=== PATIENT | male | born 1960 | race Caucasian/White ===

== ENCOUNTER → 2016-10-24 | Outpatient (CLI) | payer BC ==
[2016-10-24 11:01] LABS: ALT/SGPT 51 U/L (12-78); BLOOD UREA NITROGEN 22 mg/dl (7-18); BUN/CREATININE RATIO 24.5 (10-20); CALCIUM 8.2 mg/dl (8.5-10.1); CARBON DIOXIDE 30 mmol/L (21-32); CHLORIDE 102 mmol/L (98-107); GLUCOSE 107 mg/dl (70-99); SODIUM 138 mmol/L (136-145)
[2016-10-24 11:04] LABS: ALB/GLOB RATIO 0.9 (0.9-2); ALKALINE PHOSPHATASE 55 U/L (45-117); AST/SGOT 19 U/L (15-37); CHOLESTEROL 197 mg/dl (0-200); CHOLESTEROL/HDL RATIO 4.2; HDL CHOLESTEROL 47 mg/dl; LDL CHOLESTEROL CALCULATED 128 mg/dl; TRIGLYCERIDES 110 mg/dl (0-150); VERY LOW DENSITY LIPOPROT CALC 22 mg/dl
[2016-10-24 11:41] LABS: ESTIMATED AVERAGE GLUCOSE 128 mg/dl; HA1C FLAG Normal (Normal)
== END | disposition home or self-care (01) ==
LOC: C.LABBC 07:22
PROVIDERS: ATTEND Internal Medicine
DX: R73.01 Impaired fasting glucose (principal)

== ENCOUNTER → 2017-04-09 | Outpatient (CLI) | payer BC ==
[2017-04-09 13:44] LABS: ESTIMATED AVERAGE GLUCOSE 140 mg/dl; HA1C FLAG Normal (Normal)
[2017-04-09 13:49] LABS: ALT/SGPT 55 U/L (12-78); BLOOD UREA NITROGEN 16 mg/dl (7-18); BUN/CREATININE RATIO 17.9 (10-20); CALCIUM 9.3 mg/dl (8.5-10.1); CARBON DIOXIDE 29 mmol/L (21-32); CHLORIDE 104 mmol/L (98-107); CHOLESTEROL 239 mg/dl (0-200); CREATININE 0.91 mg/dl (0.60-1.40); GLUCOSE 101 mg/dl (70-99); POTASSIUM 4.3 mmol/L (3.5-5.1); SODIUM 139 mmol/L (136-145); TRIGLYCERIDES 146 mg/dl (0-150); VERY LOW DENSITY LIPOPROT CALC 29 mg/dl
[2017-04-09 13:52] LABS: ALKALINE PHOSPHATASE 60 U/L (45-117); AST/SGOT 28 U/L (15-37); CHOLESTEROL/HDL RATIO 4.6; HDL CHOLESTEROL 52 mg/dl; LDL CHOLESTEROL CALCULATED 158 mg/dl
== END | disposition home or self-care (01) ==
LOC: C.LABBC 10:35
PROVIDERS: ATTEND Internal Medicine
DX: G47.33 Obstructive sleep apnea (adult) (pediatric) (principal); Z11.59 Encounter for screening for other viral diseases

== ENCOUNTER → 2017-09-30 | Outpatient (CLI) | payer BC ==
--- NOTE | 2017-09-30 16:33 | DIAGNOSTIC IMAGING REPORT ---
CHEST 2 VIEWS ROUTINE HISTORY: 57 years-old Male R05 [id number] acute cough COMPARISON: Chest radiograph 02/04/2015 TECHNIQUE: PA and lateral views of the chest FINDINGS: Cardiac silhouette is upper limits of normal in size. There is no pneumothorax, pleural effusion, focal airspace consolidation or overt pulmonary edema. Bones of the chest appear grossly intact. Multilevel endplate spurring of the spine. IMPRESSION: No acute process. The above report was generated using voice recognition software. It may contain grammatical, syntax or spelling errors. Electronically signed by: Arya Cuenca M.D. 09/30/2017 4:32 PM Dictated Date/Time: 09/30/2017 4:31 PM
== END | disposition home or self-care (01) ==
LOC: C.RADBC 16:22
PROVIDERS: ATTEND Internal Medicine
DX: R05 Cough (principal)

== ENCOUNTER 2025-07-19 10:06 | Observation (INO) ==
--- NOTE | 2025-06-15 14:05 | PAT Medication Instructions ---
Medication Instructions Date of Service June 15, 2025 Home Medications Medication Instructions Recorded CPAP Machine #1 ea 03/17/19 lisinopril 40 mg tablet 40 mg PO DAILY #90 tabs 06/05/24 sertraline 50 mg tablet 50 mg PO DAILY #90 tabs 11/30/24 tirzepatide 10 mg/0.5 mL 10 mg (0.5 mL) subcut .weekly #6 mL 01/07/25 subcutaneous pen injector metformin 500 mg tablet,extended 500 mg PO BID #180 tabs 01/12/25 release 24 hr blood-glucose sensor (Dexcom G7 #9 ea 02/24/25 Sensor device) empagliflozin 25 mg tablet 25 mg PO DAILY #90 tabs 03/15/25 amlodipine 2.5 mg tablet See Rx Instructions .Route 04/21/25 .COMPLEX #90 tabs atorvastatin 20 mg tablet 20 mg PO DAILY #90 tabs 05/18/25 omega-3 acid ethyl esters 1 gram capsule 3 cap PO DAILY flaxseed oil 1,000 mg capsule 3,000 mg PO DAILY vitamin B complex 1 tab PO DAILY cholecalciferol (vitamin D3) 50 mcg (2,000 unit) capsule 2,000 unit PO DAILY lisinopril 40 mg tablet 40 mg PO DAILY sertraline 50 mg tablet 50 mg PO DAILY tirzepatide 10 mg/0.5 mL subcutaneous pen injector 10 mg (0.5 mL) subcut .weekly metformin 500 mg tablet,extended release 24 hr 500 mg PO BID empagliflozin 25 mg tablet 25 mg PO DAILY amlodipine 2.5 mg tablet See Rx Instructions .Route .COMPLEX atorvastatin 20 mg tablet 20 mg PO DAILY turmeric 400 mg capsule 1,000 mg PO DAILY STOP taking 2 weeks before surgery (or as soon as possible if surgery is within 2 weeks) omega-3 acid ethyl esters 1 gram capsule 3 cap PO DAILY flaxseed oil 1,000 mg capsule 3,000 mg PO DAILY turmeric 400 mg capsule 1,000 mg PO DAILY STOP 7 days prior to surgery tirzepatide 10 mg/0.5 mL subcutaneous pen injector 10 mg (0.5 mL) subcut .weekly STOP taking 3 days before surgery empagliflozin 25 mg tablet 25 mg PO DAILY DO NOT take the morning of surgery vitamin B complex 1 tab PO DAILY cholecalciferol (vitamin D3) 50 mcg (2,000 unit) capsule 2,000 unit PO DAILY lisinopril 40 mg tablet 40 mg PO DAILY metformin 500 mg tablet,extended release 24 hr 500 mg PO BID Take morning of surgery With a small sip of water, OTHERWISE NOTHING TO EAT OR DRINK AFTER MIDNIGHT: sertraline 50 mg tablet 50 mg PO DAILY amlodipine 2.5 mg tablet See Rx Instructions .Route .COMPLEX atorvastatin 20 mg tablet 20 mg PO DAILY Take evening before surgery metformin 500 mg tablet,extended release 24 hr 500 mg PO BID Other Notes If you have any questions please call us at [phone] or [phone] or [phone] or [phone]
--- NOTE | 2025-06-22 10:19 | Anesthesiology Consultation ---
Date of Service June 22, 2025 Assessment & Plan (1) Encounter for pre-operative examination: - Check BSG DOS - Infectious disease screening: Per assessment on 06/22/25- No known recent infectious disease contacts or current infectious disease symptoms. - Outpatient joint assessment: Pt currently scheduled for inpatient pathway. If surgeon requests review for outpatient joint pathway, patient is an acceptable candidate for outpatient joint program from anesthesia standpoint pending surgeon's office assessment that patient is motivated, has good support and completes [facility] preop requirements. - GLP-1 medication instructions: Patient informed by PAT to stop 7 days prior to surgery- voiced understanding. DOS 07/19. Advised last dose to be 07/12. Chart Review Chart Review: Acceptable Risk for Surgery and Patient seen in Pre Admission Testing Teaching & Discussion Pre-Anesthesia Teaching/Discussion Notes: Instructed NPO after midnight before surgery,except medications with 15 cc of water. Medication instructions p rovided according to the PAT guidelines. History Surgery Operation Date: 07/19/25 10:00 Proposed Procedures p Left Total Knee Arthroplasty - Matthieu Moffett DO Height/Weight Height: 5 ft 6 in Weight: 80.6 kg Allergies Allergy/AdvReac Type Severity Reaction Status Date / Time No Known Drug Allergies Allergy Verified 06/15/25 12:19 Medications Home Medications Medication Instructions Recorded Confirmed Last Taken CPAP Machine #1 ea 03/17/19 03/08/25 Unknown omega-3 acid ethyl esters 1 gram 3 cap PO DAILY 05/28/19 06/15/25 Unknown capsule flaxseed oil 1,000 mg capsule 3,000 mg PO DAILY 05/31/19 06/15/25 Unknown vitamin B complex 1 tab PO DAILY 02/23/21 06/15/25 Unknown cholecalciferol (vitamin D3) 50 2,000 unit PO DAILY 04/19/21 06/15/25 Unknown mcg (2,000 unit) capsule lisinopril 40 mg tablet 40 mg PO DAILY #90 tabs 06/05/24 06/15/25 Unknown sertraline 50 mg tablet 50 mg PO DAILY #90 tabs 11/30/24 06/15/25 Unknown tirzepatide 10 mg/0.5 mL 10 mg (0.5 mL) subcut .weekly #6 mL 01/07/25 06/15/25 Unknown subcutaneous pen injector metformin 500 mg tablet,extended 500 mg PO BID #180 tabs 01/12/25 06/15/25 Unknown release 24 hr blood-glucose sensor (Dexcom G7 #9 ea 02/24/25 03/08/25 Unknown Sensor device) empagliflozin 25 mg tablet 25 mg PO DAILY #90 tabs 03/15/25 06/15/25 Unknown amlodipine 2.5 mg tablet See Rx Instructions .Route 04/21/25 06/15/25 Unknown .COMPLEX #90 tabs atorvastatin 20 mg tablet 20 mg PO DAILY #90 tabs 05/18/25 06/15/25 Unknown turmeric 400 mg capsule 1,000 mg PO DAILY 06/15/25 06/15/25 Unknown Past Medical History Medical History Arthralgia Coronary artery calcification Diabetes Hepatic steatosis HLD (hyperlipidemia) HTN (hypertension) Knee pain RAJNI (obstructive sleep apnea) CPAP (compliant) Osteoarthritis Exercise / Class Metabolic Activity II 4-5 Yardwork/Stairs/Walk up hill (one FS: No CP, no SOB) Past Family History Family History Father Hypertension Hyperlipemia Aunt Breast cancer Grandfather (Paternal) Myocardial infarction Denies family history of Ovarian cancer Prostate cancer Lung cancer Colorectal cancer Past Surgical History Surgical History H/O vasectomy History of removal of pigmented skin lesion Hx of colonoscopy Past Anesthesia History No Hx of Anesthesia Complications and No Family Hx of Anesthesia Complications History of PONV No Hx of PONV and Hx of Motion Sickness (Situational) Social History Smoking Status: Never smoker Do You Dip or Chew Tobacco: No Hx Alcohol Use: Yes alcohol intake frequency: a few times a month Hx Substance Use: No substance use type: does not use Review of Systems Patient denies chest pain, shortness of breath, dyspnea on exertion, fever, chills, cough, wheezing, palpitations. Physical Exam Vital Signs BP 144/79 P 55 SP02 97%RA RESP 16 Physical Full cervical extension range of motion. Full TMJ range of motion. TMD > 3.5 finger breaths Mallampati Score I Dentition: intact Lungs: clear throughout to auscultation Cardiac: regular rate and rhythm, no murmurs noted Spine: normal Carotid arteries: negative bruit Extremities: no LE edema Lab Results Anesthesia Preop Results Results Anesthesia Widget: WBC 10.00 K/ul (4.8-10.8) 06/22/25 Hgb 14.9 g/dl (14.0-18.0) 06/22/25 Hct 44.1 % (42.0-52.0) 06/22/25 Plt 296 K/uL (130-400) 06/22/25 Na 139 mmol/L (136-145) 06/22/25 K 4.8 mmol/L (3.5-5.1) 06/22/25 Cl 104 mmol/L (98-107) 06/22/25 CO2 27 mmol/L (21-32) 06/22/25 BUN 24 mg/dl (6-23) H 06/22/25 Creat 0.75 mg/dl (0.6-1.4) 06/22/25 Glucose Level 104 mg/dl (70-99(Fasting)) H 06/22/25 PT 10.3 Seconds (9.0-12.0) 06/22/25 PTT 27 Seconds (21-31) 06/22/25 INR 1.0 (0.9-1.1) 06/22/25 HA1c 6.7 % (4.5-5.6) H 06/22/25 Blood Type A Positive 06/22/25 Antibody Screen NEGATIVE 06/22/25 Testing Electrocardiogram Date: 06/22/25 SB at 53bpm. "Otherwise normal ECG" Chest X-Ray Date: 06/22/25 Findings: + NAD
[~2025-07-19 10:06] MED LIST: BUPIVACAINE 0.5 % 5 MG/1 ML PF 10ML VIAL ONE; GLYCOPYRROLATE 0.2 MG/ML VIAL ONE; KETAMINE HCL 10MG/ML SYR ONE; LIDOCAINE 2% 2 ML VIAL/AMP(20MG/ML) INFIL ONE; MIDAZOLAM HCL 1 MG/ML 2ML VIAL ONE; ONDANSETRON INJ 2 MG/ML 2 ML VIAL ONE; PHENYLEPHRINE 100MCG/ML 5ML SYR ONE; PROPOFOL IV EMULSION 10 MG/ML 20 ML VIAL IV ONE; ROPIVACAINE 0.5% 5 MG/ML 30 ML VIAL ONE; ePHEDrine sulfate 50 MG/5 ML SYR ONE
--- NOTE | 2025-07-19 10:43 | History & Physical Bridge Note ---
Date of Service July 19, 2025 History & Physical Bridge Note I have examined the patient, reviewed the History & Physical and in the interval since the performance of the History & Physical I have noted the following changes of clinical significance: no changes noted
[2025-07-19] MEDS ORDERED: ATROPINE SULFATE 0.1 MG/ML 10ML SYR IV PRN (11:16)
[2025-07-19] MEDS ORDERED: ONDANSETRON INJ 2 MG/ML 2 ML VIAL IV PRN ×2 (11:16→15:13)
[2025-07-19] MEDS: FAMOTIDINE 20 MG TAB PO SCH (11:22)
[2025-07-19] MEDS: GABAPENTIN 600 MG DOSE PO SCH (11:22)
[2025-07-19] MEDS: ACETAMINOPHEN 500 MG TAB PO SCH ×2 (11:22→16:27)
[2025-07-19] MEDS: dexAMETHasone**PF** 10 MG/ML VIAL IV SCH (11:24)
[2025-07-19] MEDS: LR 500ML BOLUS, THEN 15ML/HR IV SCH (11:28)
[2025-07-19] MEDS: LR 60ML/HR IV SCH (11:28)
[2025-07-19] MEDS: TRANEXAMIC ACID 1,000 MG **IV Pre-op IV SCH (11:33)
[2025-07-19] MEDS: ORTHO JOINT ANESTHETIC ONE (12:00)
[2025-07-19] MEDS: ROPIV 0.5% 246mg, Ketorolac 30mg, EPINEPHrine 0.5mg in NSS INFIL SCH (12:00)
--- NOTE | 2025-07-19 12:47 | Operative Report ---
PG Post Operative Report Pre & Post Diagnosis Operation Date: 07/19/25 12:00 Pre-Op Diagnosis: Degenerative Joint Disease Left Knee Post-Op Diagnosis: Degenerative Joint Disease Left Knee I identified the patient and participated in the time-out.: Yes Procedure Operation Date: 07/19/25 12:00 Actual Procedures p Robotic Assisted Left Total Knee Arthroplasty, Uncemented(Left) - Matthieu Moffett DO Surgeon Matthieu Moffett DO [employer] Janeth Smith PA-C Estimated Blood Loss 30 Findings Consistent with Post-Op Diagnosis Specimens Left femoral and tibial bone Description of Procedure Implants used: I used a Danis Persona total knee arthroplasty system with a size 8 standard PS femur, E tibia, and a size 10 CPS polyethylene bearing. All components were press-fit into place. Chip arrived [facility] for the above procedure. He was seen in the preoperative holding area and the operative extremity was identified and signed. he was given a preoperative antibiotic, TXA, a spinal anesthetic and an adductor nerve block. He was taken back to the operating room and laid on the table in supine position. He was given basic sedation. The operative knee was then prepped and draped in sterile fashion. A timeout was done, and the patient and the operative extremity was properly identified. A midline incision was made directly over the patella. Dissection was taken down to the extensor mechanism. A medial parapatellar arthrotomy was used. The medial retinaculum was released and the fat pad was mostly excised. The knee was flexed and the ACL, PCL, and meniscus were removed. The alignment of the knee replacement was assisted with a Weavly robotic knee. The femoral array was pinned in the distal femur and the tibial array was pinned using a percutaneous technique in the upper shaft of the tibia. The robot was appropriately calibrated and the structure of the knee was mapped out. The components were then manipulated on the screen to account for any malalignment and to assist in gap balancing. Once I was happy with the placement of the components on the screen, a distal femoral cutting guide was brought in place. The distal femur was then resected. The femur measured to be a size 8. A 4-in-1 cutting block was then put into place by the robot and 2 peg holes were drilled. The 4-in-1 cutting block was then impacted into place and anterior, posterior, and chamfer cuts were made. The cutting block was then brought down to the tibia and pinned into place. The proximal tibia was then resected. The posterior aspect of the knee was then opened up and any additional meniscus fragments and osteophytes were removed. The tibia measured to be a size E. The tibial plate was then placed in the appropriate rotation and the tibia was drilled and punched. Trial components were then placed. A size 10 CPS polyethylene insert was then trialed. The knee was brought through a full range of motion and felt to be stable. Trial components were then removed. The surrounding soft tissues were injected with 100 cc of an orthopedic pain control cocktail. All components were then press-fit into place. The final polyethylene insert was then snapped into place. The tourniquet was deflated. Hemostasis was obtained. A dilute betadyne lavage was then done for 3 minutes. The joint was then irrigated with normal saline solution. The medial parapatellar arthrotomy was then closed with #1 Vicryl suture. The skin was closed with 2-0 Vicryl, 3-0V lock suture, and Fadia Zipline. A soft compressive dressing was placed. He was then transferred to a hospital bed and taken to the postanesthesia care unit in stable condition. He tolerated the procedure well. Janeth Smith PA-C, was present for the entire procedure. He was critical for patient positioning, prepping, draping, retraction exposure, wound closure and application of sterile dressing. I attest to the content of the Intraoperative Record and any orders documented therein. Any exceptions are noted below.
--- NOTE | 2025-07-19 13:29 | XRay Report ---
XR knee LT 1 or 2V routine CLINICAL HISTORY: Surgical Post Op COMPARISON: 02/23/2021 FINDINGS: Left knee prosthesis shows no hardware complication. There is expected soft tissue gas. IMPRESSION: Unremarkable postoperative exam. ACT 112: Negative or not required by law. Electronically signed by: Lei Goss M.D. 07/19/2025 1:28 PM
--- NOTE | 2025-07-19 14:47 | Anesthesiology Progress Note ---
Date of Service July 19, 2025 Anesthesia Post Procedure Vital Signs Vital Signs: Temp Pulse Resp BP BP Pulse Ox O2 Del Method 07/19/25 14:35 65 24 143/82 H 98 Room Air 07/19/25 14:25 61 16 172/82 H 98 Room Air 07/19/25 14:15 60 19 152/64 H 97 Room Air 07/19/25 14:05 55 L 22 164/75 H 98 Room Air 07/19/25 13:55 61 22 164/76 H 97 Room Air 07/19/25 13:45 60 17 149/82 H 97 Room Air 07/19/25 13:35 63 15 144/73 H 96 Room Air 07/19/25 13:25 66 16 149/77 H 96 Room Air 07/19/25 13:15 64 15 125/71 96 Room Air 07/19/25 13:06 36.9 C 66 24 105/68 96 Room Air 07/19/25 10:36 36.5 C 58 L 18 158/81 H 98 Room Air Transfer of Care Handoff Completed per policy Notes Mental Status: alert / awake / arousable Patient Amnestic to Procedure: Yes Nausea / Vomiting: adequately controlled Pain: adequately controlled Airway Patency, RR, SpO2: stable & adequate BP & HR: stable & adequate Hydration State: stable & adequate Neuraxial Anesthesia: was administered and sensory block is resolving Anesthetic Complications: no major complications apparent and Pt Satisfied with anesthetic care
[2025-07-19] MEDS ORDERED: MAGNESIUM HYDROXIDE SUSP 30 ML UDC PO PRN (15:13)
[2025-07-19] MEDS ORDERED: NALOXONE HCL 0.4 MG/1 ML VIAL/CARP IV PRN (15:13)
[2025-07-19] MEDS ORDERED: HYDROmorphone INJ 0.5 MG/0.5 ML SYR IV PRN (15:13)
[2025-07-19] MEDS ORDERED: PHARMACY GLYCEMIC MGMT CONSULT PRN (15:13)
[2025-07-19] MEDS ORDERED: NON-FORMULARY MEDICATION (Tirzepatide 10 mg/0.5 mL pen injector) SQ SCH (15:13)
[2025-07-19] MEDS ORDERED: METOCLOPRAMIDE HCL INJ 5 MG/ML 2 ML VIAL IV PRN (15:13)
--- NOTE | 2025-07-19 15:54 | Pharmacy Report ---
Pharmacy Glycemic Short Note 2 - Date of Service July 19, 2025 - Glycemic Short BSG Results (Last 24 hours): 07/19/25 07/19/25 10:34 14:48 POC Glucose 116 H 177 H OUTPATIENT ANTIDIABETIC REGIMEN: * Jardiance 25mg PO Daily * Metformin 500mg PO BID * Tirzepatide 10mg SQ Weekly on Mondays * A1c 6.7% 06/22/25 ASSESSMENT: * 64 yo M, s/p LTKA, type 2 DM on medications listed above. Received 10mg IV Dexamethasone pre-op. Blood sugar rising up to 177mg/dl post op. Will give one time Lantus dose now, and more PRN tonight if BSG 180mg/dl or greater. No further steroids ordered post-op. * Oral agents are not recommended for inpatient use d/t drug interactions, changing PO intake, and difficulty titrating for acute hyper/hypoglycemia. ADA recommends re-initiating outpatient oral agents 1-2 days prior to discharge if/when appropriate if they were held on admission. PLAN FOR INPATIENT GLYCEMIC CONTROL: * Hold outpatient diabetes medications at this time, resume metformin on POD2 - 500mg PO BID * Basal insulin * Lantus 15 units SQ x 1 dose now, then HS PRN (BSG < 180 = 0 units, BSG 180- 220 = 10 units, BSG > 220 = 15 units) * Further dosing in the AM if needed. * Bolus insulin * NovoLog per scale ACHS or Q6hrs while NPO * Goal Range: Low 110 mg/dL - High 140 mg/dL * Correction Factor: 30 mg/dL/unit * Nutritional / Prandial insulin per carb ratio of 1 unit per 10 grams CHO consumed
[2025-07-19] MEDS ORDERED: CARBOHYDRATES FOR HYPOGLYCEMIA PO PRN (16:00)
[2025-07-19] MEDS ORDERED: GLUCOSE 40% GEL 15 GM TUBE PO PRN (16:00)
[2025-07-19] MEDS ORDERED: GLUCOSE 10 TAB/TUBE PO PRN (16:00)
[2025-07-19] MEDS ORDERED: GLUCAGON FOR INJ 1 MG VIAL SQ PRN (16:00)
[2025-07-19] MEDS ORDERED: DEXTROSE 50% 50 ML SYRINGE IV PRN (16:00)
[2025-07-19] MEDS: SODIUM CHLORIDE 0.9% 1,000 ML IV SCH (16:26)
[2025-07-19] MEDS: KETOROLAC TROMETHAMINE 15 MG/ML VIAL IV SCH (16:28)
[2025-07-19] MEDS: LANTUS PER UNIT CHARGE SC ONE ×2 (16:48→20:28)
[2025-07-19] MEDS: INSULIN ASPART PER UNIT CHARGE SC SCH (17:35)
[2025-07-19] MEDS: SENNA 8.6 MG TAB PO SCH (21:16)
[2025-07-19] MEDS: DOCUSATE SODIUM 100 MG CAP PO SCH (21:16)
[2025-07-19] MEDS: ASPIRIN 81 MG ECTAB PO SCH (21:17)
[2025-07-20 03:49] VITALS: RESP 16
[2025-07-20 07:14] VITALS: BP 159/76; PULSE 59; TEMP 97.3; O2SAT 98
[2025-07-20] MEDS: ATORVASTATIN 20 MG TAB PO SCH (08:18)
[2025-07-20] MEDS: MULTIVITAMIN TAB PO SCH (08:18)
[2025-07-20] MEDS: SERTRALINE HCL 50 MG TABLET PO SCH (08:18)
[2025-07-20] MEDS ORDERED: EMPAGLIFLOZIN 25 MG TAB PO SCH (09:00)
--- NOTE | 2025-07-20 09:44 | Orthopedic Progress Note ---
Date of Service July 20, 2025 Assessment & Plan (1) Status post left knee replacement: * Continue Current Treatment * Disposition: Home * Daily treatment: Physical Therapy/ Occupational Therapy per protocol * Weight bearing status: as tolerated * Continue to monitor for ABLA * Pain control * DVT prophylaxis, ASA * Office/hospital f/u 2 weeks for progress check and staple/suture removal * Plan for discharge today pending PT/OT clearance Subjective Active Problems: S/p left total knee arthroplasty POD 1 64 y/o male s/p left total knee arthroplasty with Dr. Moffett 07/19/25. Doing well overall, pain managed and improved function. Denies fever/chills, chest pain/SOB, nausea/vomiting. Otherwise no complaints. Pt is very pleased thus far stating he feels maybe having had the iovera has completely eliminated his pain so far. . Review of Systems All systems reviewed & are unremarkable except as noted in HPI & below. Physical Exam . * General: Alert and oriented, no acute distress * Constitutional: well-developed, well-nourished. * Respiratory: Normal respiratory effort, no distress * Gastrointestinal: No tenderness to palpation, no rigidity or guarding. * Skin: No rash or lesion. * Neurologic: Grossly normal * Musculoskeletal: Left knee surgical dressing clean, dry and in place, not removed for exam. Otherwise no obvious deformity or overlying skin changes RLE. Diffuse TTP distal thigh and knee region. Otherwise no specific tenderness of proximal thigh, lower leg, foot/ankle. AROM knee flexion 100 degrees. AROM foot/ankle intact. Sensation intact plantar/dorsal foot. Brisk capillary refill. Results & Data Results & Data Laboratory Results Laboratory Results - last 24 hr 07/19/25 07/19/25 07/19/25 10:34 14:48 16:43 POC Glucose 116 H 177 H 160 H 07/19/25 07/20/25 20:18 07:49 POC Glucose 170 H 167 H . Diagnostic Findings Knee X-Ray 07/19/25 12:05 XR knee LT 1 or 2V routine CLINICAL HISTORY: Surgical Post Op COMPARISON: 02/23/2021 FINDINGS: Left knee prosthesis shows no hardware complication. There is expected soft tissue gas. IMPRESSION: Unremarkable postoperative exam. ACT 112: Negative or not required by law. Electronically signed by: Lei Goss M.D. 07/19/2025 1:28 PM . PG Care Time/CCT Total # of Minutes Spent Total Time Spent with Patient: Total time spent is greater than 50% in coordination of care (as documented) at patient's floor/unit and/or counseling patient: Coding Level of Care Code 08004 Post Operative Follow-Up Diagnoses Status post left knee replacement Z96.652
== END 2025-07-20 11:20 | disposition home or self-care (01) ==
LOC: ASU 10:06 → 3E 10:06
DX: Z79.899 Other long term (current) drug therapy; Z79.84 Long term (current) use of oral hypoglycemic drugs; M17.12 Unilateral primary osteoarthritis, left knee; Z79.85 Long-term (current) use of injectable non-insulin antidiabetic drugs; I10 Essential (primary) hypertension; G47.33 Obstructive sleep apnea (adult) (pediatric); E78.5 Hyperlipidemia, unspecified